=== PATIENT | female | born 1940 | race Caucasian/White ===

== ENCOUNTER 2017-02-01 22:01 | Emergency (ER) | payer MEDICARE, OTHER ==
[~2017-02-01] VITALS: Ht 152.4 cm; Wt 74.5 kg
[2017-02-01] MEDS ORDERED: DILT60 PO (22:20)
[2017-02-01] MEDS ORDERED: ATOR40TA28 PO (22:20)
[2017-02-01] MEDS ORDERED: VITAD1000 PO (22:20)
[2017-02-01] MEDS ORDERED: FERR-89 PO (22:21)
[2017-02-01] MEDS ORDERED: LORA10TA7 PO (22:21)
[2017-02-01] MEDS ORDERED: FURO40 PO (22:21)
[2017-02-01] MEDS ORDERED: BENA20 PO (22:21)
[2017-02-01] MEDS ORDERED: TRAZ-144 PO (22:21)
[2017-02-01] MEDS ORDERED: TRAM50TA4 PO (22:21)
[2017-02-01] MEDS ORDERED: MELA3 PO (22:21)
[2017-02-01] MEDS ORDERED: OMEP20 PO (22:21)
[2017-02-01] MEDS ORDERED: FOLI1 PO (22:21)
[2017-02-01] MEDS ORDERED: SITA1TAB6 PO (22:21)
[2017-02-01] MEDS ORDERED: HYDR200T4 PO (22:21)
[2017-02-01] MEDS ORDERED: MILN50TA PO (22:21)
[2017-02-01] MEDS ORDERED: METH2.5 PO (22:21)
[2017-02-01] MEDS ORDERED: INSLAN SQ (22:21)
[2017-02-01] MEDS ORDERED: INSNOV SQ (22:21)
[2017-02-01] MEDS ORDERED: MEMA1CAP3 PO (22:21)
[2017-02-01] MEDS ORDERED: LEVO112T4 PO (22:21)
[2017-02-01 22:22] LABS: GLUCOSE,POINT OF CARE 131 MG/DL (70-110)
[2017-02-01 22:27] LABS: BASOPHILS % (AUTO) 0.9 % (0.0-2.0); EOSINOPHILS % (AUTO) 1.2 % (1.0-6.0); HEMATOCRIT 35.9 % (36-46); HEMOGLOBIN 12.3 g/dL (12.0-16.0); LYMPHOCYTES # (AUTO) 2.1 K/uL (1.0-4.8); LYMPHOCYTES % (AUTO) 20.8 % (22.0-44.0); MEAN CORPUSCULAR HEMOGLOBIN 32.1 pg (26.0-34.0); MEAN CORPUSCULAR HGB CONC 34.3 G/dL (31.0-37.0); MEAN CORPUSCULAR VOLUME 93 fL (80-100); MONOCYTES # (AUTO) 0.8 K/uL (0.1-1.0); MONOCYTES % (AUTO) 8.1 % (2.0-9.0); NEUTROPHILS # (AUTO) 7.1 K/uL (1.8-7.7); PLATELET COUNT (AUTO) 391 K/uL (150-450); RED BLOOD CELL COUNT(AUTO) 3.84 MIL/uL (4.00-5.20); RED CELL DISTRIBUTION WIDTH 15.1 % (11.5-14.5); WHITE BLOOD COUNT (AUTO) 10.3 K/uL (4.5-11.0)
[2017-02-01 22:36] LABS: ANION GAP 11 mmol/L (8-16); CALCIUM, TOTAL 9.2 mg/dL (8.8-10.5); CARBON DIOXIDE 27 mmol/L (22-29); CHLORIDE 96 mmol/L (98-107); CREATININE 0.96 mg/dL (0.60-1.30); GLOMERULAR FILTR. RATE CALC 57 mL/min (>60); POTASSIUM 3.7 mmol/L (3.5-5.1); SODIUM SERUM 134 mmol/L (136-145); UREA NITROGEN, BLOOD 23 mg/dL (7-18)
[2017-02-01 22:42] LABS: ALANINE AMINOTRANSFERASE 17 U/L (12-78); ALBUMIN 4.1 g/dL (3.4-5.0); ASPARTATE AMINOTRANSFERASE 23 U/L (15-37); BILIRUBIN,TOTAL 0.4 mg/dL (0.1-1.0); TOTAL PROTEIN, SERUM 8.6 g/dL (6.4-8.2)
[2017-02-01 23:17] VITALS: BP 128/81
== END 2017-02-01 23:26 | disposition home or self-care (01) ==
LOC: EMS 22:03
DX: R45.851 Suicidal ideations (principal); G30.9 Alzheimer's disease, unspecified; F02.80 Dementia in other diseases classified elsewhere, unspecified severity, without behavioral disturbance, psychotic disturbance, mood disturbance, and anxiety; E11.9 Type 2 diabetes mellitus without complications; E78.00 Pure hypercholesterolemia, unspecified; I10 Essential (primary) hypertension; Z79.4 Long term (current) use of insulin
CPT/HCPCS: 36415; 80053; 82962; 85025; 99285; G0480